=== PATIENT | female | born 1955 | race Caucasian/White ===

== ENCOUNTER 2019-05-20 11:48 | Observation (INO) ==
[2019-05-20] MEDS ORDERED: LACTATED RINGERS 1,000 ML IV ONE (12:01)
[2019-05-20 12:30] LABS: Basophils % 0.4 % (0.0-0.8); Eosinophils # 0.1 10*3/uL (0.0-0.87); Eosinophils % 1.6 % (0.00-10.9); Hematocrit 26.5 VOL% (35.7-47.0); Hemoglobin 9.4 GM/DL (12.0-16.0); Immature Granulocytes % 0.3 %; Immature Granulocytes Absolute 0.02 #; Lymphocytes # 1.6 10*3/uL (1.4-4.0); Lymphocytes % 21.6 % (21.3-54.2); Mean Corpuscular HGB Conc 35.5 GM/DL (32-36); Mean Corpuscular Volume 95.3 FL (87-102); Mean Platelet Volume 8.4 FL (9.6-12.0); Monocytes % 7.8 % (1.7-12.7); Neutrophils % 68.3 % (38.7-73.9); Platelet Count 221 T/CUMM (130-400); Red Blood Count 2.78 MC/CUMM (3.8-5.5); Red Cell Distribution Width 12.5 % (9.3-17.3); White Blood Count 7.5 T/CUMM (4-12)
[2019-05-20 12:45] LABS: Apearance,Urine Slightly Hazy (Clear); Bacteria,Urine Occasional /HPF (Few); Bilirubin,Urine Negative (Negative); Blood, Urine Small mg/dL (Negative); Glucose,Urine (UA) Negative (Negative); Hyaline Casts,Urine 6 /LPF (0-3); Ketones,Urine Negative (Negative); Nitrite,Urine Negative (Negative); Protein,Urine Negative; RBC,Urine 6 /HPF (0-4); Squamous Epithelial Cell,Urine Occasional /HPF (0-10); Urine Color Yellow (Yellow); Urine Specific Gravity 1.005 (1.001-1.035); Urine Urobilinogen < 2.0 EU/DL (0.2-1.0)
[2019-05-20 12:48] LABS: Albumin 3.6 G/DL (3.4-5.0); Bilirubin,Total 0.6 MG/DL (0.2-1.0); Calcium 12.5 MG/DL (8.5-10.1); Osmolality,Calculated 254.4 MOS/KG (273-304); Total Protein 7.2 G/DL (6.4-8.3)
[2019-05-20] MEDS ORDERED: BISACODYL 5 MG TABLET PO PRN (14:09)
[2019-05-20] MEDS ORDERED: DOCUSATE SODIUM 100 MG CAPSULE PO PRN (14:09)
[2019-05-20] MEDS ORDERED: NICOTINE 21 MG/24 HR PATCH TRANSDERM PRN (14:09)
[2019-05-20] MEDS ORDERED: ONDANSETRON 4 MG/2 ML VIAL IV PRN (14:09)
[2019-05-20] MEDS ORDERED: ACETAMINOPHEN 325 MG TABLET PO PRN (14:09)
[2019-05-20] MEDS ORDERED: SODIUM CHLORIDE 0.9% 1,000 ML IV SCH (14:30)
[2019-05-20] MEDS: SODIUM CHLORIDE 0.9% 1,000 ML IV SCH (17:05)
[2019-05-20] MEDS ORDERED: hydrALAZINE 20 MG/1 ML VIAL IV PRN (19:59)
[2019-05-20] MEDS: FERROUS SULFATE 325 MG TABLET PO SCH (20:33)
[2019-05-20] MEDS: ALPRAZolam 0.5 MG TABLET PO SCH (20:33)
[2019-05-21] MEDS: SODIUM CHLORIDE 0.9% 1,000 ML IV SCH (01:58)
[2019-05-21 04:22] LABS: Basophils % 0.3 % (0.0-0.8); Eosinophils # 0.1 10*3/uL (0.0-0.87); Eosinophils % 1.8 % (0.00-10.9); Hematocrit 24.8 VOL% (35.7-47.0); Hemoglobin 8.7 GM/DL (12.0-16.0); Immature Granulocytes % 0.6 %; Immature Granulocytes Absolute 0.04 #; Lymphocytes # 1.3 10*3/uL (1.4-4.0); Lymphocytes % 20.1 % (21.3-54.2); Mean Corpuscular HGB Conc 35.1 GM/DL (32-36); Mean Platelet Volume 8.7 FL (9.6-12.0); Monocytes % 8.5 % (1.7-12.7); Neutrophils % 68.7 % (38.7-73.9); Platelet Count 221 T/CUMM (130-400); Red Blood Count 2.61 MC/CUMM (3.8-5.5); Red Cell Distribution Width 12.5 % (9.3-17.3); White Blood Count 6.6 T/CUMM (4-12)
[2019-05-21 05:03] LABS: Albumin 3.1 G/DL (3.4-5.0); Bilirubin,Total 0.9 MG/DL (0.2-1.0); Calcium 10.3 MG/DL (8.5-10.1); Osmolality,Calculated 272.8 MOS/KG (273-304); Total Protein 6.2 G/DL (6.4-8.3)
[2019-05-21 05:12] LABS: Folate 10.2 NG/ML (5.4-24.0)
[2019-05-21] MEDS: POTASSIUM CHLORIDE RIDER 10 MEQ in PREMIX 1 EACH IV PRN ×5 (09:51→22:33)
[2019-05-21] MEDS: ALPRAZolam 0.5 MG TABLET PO SCH ×2 (09:52→20:20)
[2019-05-21] MEDS: amLODIPine 10 MG TABLET PO SCH (09:52)
[2019-05-21] MEDS: CITALOPRAM 20 MG TABLET PO SCH (09:52)
[2019-05-21] MEDS: PANTOPRAZOLE 40 MG TABLET PO SCH (09:52)
[2019-05-21] MEDS: FERROUS SULFATE 325 MG TABLET PO SCH ×2 (09:52→20:20)
[2019-05-21] MEDS ORDERED: SODIUM CHLORIDE 0.9% 1,000 ML IV SCH (11:00)
[2019-05-21] MEDS: MAGNESIUM SULF RIDER 4 GM in PREMIX 1 EACH IV PRN ×2 (11:57→15:30)
[2019-05-21] MEDS: traZODone 50 MG TABLET PO PRN (20:20)
[2019-05-22] MEDS: SODIUM CHLORIDE 0.9% 1,000 ML IV SCH (00:13)
[2019-05-22] MEDS: THIAMINE INJ 100 MG, FOLIC ACID INJ 1 MG, MULTIVITAMIN INJ 10 ML in SODIUM CHLORIDE 0.9... IV SCH ×2 (00:14→10:36)
[2019-05-22 04:36] LABS: Basophils % 0.5 % (0.0-0.8); Eosinophils # 0.1 10*3/uL (0.0-0.87); Eosinophils % 2.2 % (0.00-10.9); Hematocrit 21.1 VOL% (35.7-47.0); Hemoglobin 7.4 GM/DL (12.0-16.0); Immature Granulocytes % 0.5 %; Immature Granulocytes Absolute 0.03 #; Lymphocytes % 33.9 % (21.3-54.2); Mean Corpuscular HGB Conc 35.1 GM/DL (32-36); Mean Platelet Volume 8.7 FL (9.6-12.0); Monocytes % 8.6 % (1.7-12.7); Neutrophils % 54.3 % (38.7-73.9); Platelet Count 200 T/CUMM (130-400); Red Blood Count 2.22 MC/CUMM (3.8-5.5); Red Cell Distribution Width 12.7 % (9.3-17.3); White Blood Count 5.8 T/CUMM (4-12)
[2019-05-22 05:06] LABS: Calcium 8.4 MG/DL (8.5-10.1); Osmolality,Calculated 271.7 MOS/KG (273-304)
[2019-05-22] MEDS: CITALOPRAM 20 MG TABLET PO SCH (10:37)
[2019-05-22] MEDS: amLODIPine 10 MG TABLET PO SCH (10:38)
[2019-05-22] MEDS: POTASSIUM CHLORIDE 20 MEQ TABLET PO SCH (10:38)
[2019-05-22] MEDS: FERROUS SULFATE 325 MG TABLET PO SCH ×2 (10:39→20:34)
[2019-05-22] MEDS: PANTOPRAZOLE 40 MG TABLET PO SCH ×2 (11:13→20:34)
[2019-05-22] MEDS: ALPRAZolam 0.5 MG TABLET PO SCH ×2 (11:13→20:35)
[2019-05-22] MEDS: POTASSIUM CHLORIDE 20 MEQ TABLET PO PRN (12:44)
[2019-05-22] MEDS: traZODone 50 MG TABLET PO PRN (20:35)
[2019-05-23 04:36] LABS: Basophils % 0.4 % (0.0-0.8); Eosinophils # 0.2 10*3/uL (0.0-0.87); Eosinophils % 2.9 % (0.00-10.9); Hematocrit 22.2 VOL% (35.7-47.0); Hemoglobin 7.6 GM/DL (12.0-16.0); Immature Granulocytes % 0.4 %; Immature Granulocytes Absolute 0.03 #; Lymphocytes # 2.4 10*3/uL (1.4-4.0); Lymphocytes % 35.5 % (21.3-54.2); Mean Corpuscular HGB Conc 34.2 GM/DL (32-36); Mean Corpuscular Volume 101.4 FL (87-102); Mean Platelet Volume 8.7 FL (9.6-12.0); Monocytes % 7.4 % (1.7-12.7); Neutrophils % 53.4 % (38.7-73.9); Platelet Count 191 T/CUMM (130-400); Red Blood Count 2.19 MC/CUMM (3.8-5.5); White Blood Count 6.9 T/CUMM (4-12)
[2019-05-23 05:06] LABS: Calcium 7.8 MG/DL (8.5-10.1); Osmolality,Calculated 276.3 MOS/KG (273-304)
[2019-05-23] MEDS: POTASSIUM CHLORIDE 20 MEQ TABLET PO PRN ×2 (06:10→09:22)
[2019-05-23] MEDS: MAGNESIUM SULF RIDER 2 GM in PREMIX 1 EACH IV PRN ×2 (06:10→09:26)
[2019-05-23] MEDS: POTASSIUM CHLORIDE 20 MEQ TABLET PO SCH (09:21)
[2019-05-23] MEDS: CITALOPRAM 20 MG TABLET PO SCH (09:23)
[2019-05-23] MEDS: ALPRAZolam 0.5 MG TABLET PO SCH (09:23)
[2019-05-23] MEDS: amLODIPine 10 MG TABLET PO SCH (09:23)
[2019-05-23] MEDS: FERROUS SULFATE 325 MG TABLET PO SCH (09:23)
[2019-05-23] MEDS: PANTOPRAZOLE 40 MG TABLET PO SCH (09:23)
[2019-05-23] MEDS ORDERED: MAGNESIUM CHLORIDE 64 MG TABLET PO SCH (10:00)
[2019-05-23] MEDS: THIAMINE INJ 100 MG, FOLIC ACID INJ 1 MG, MULTIVITAMIN INJ 10 ML in SODIUM CHLORIDE 0.9... IV SCH (11:53)
[2019-05-23 12:38] VITALS: BP 120/75
[2019-05-23] MEDS ORDERED: INFLUENZA VIRUS VACCINE 0.5 ML SYRINGE IM ONE (15:04)
[2019-05-24 13:41] LABS: Osmolality, Serum 264 mOsm/kg (275 - 295); Osmolality, Urine 164 mOsm/kg (150 - 1150)
== END 2019-05-23 16:00 | disposition home or self-care (01) ==
LOC: EDUNIT# → N.4E 11:48 → N.ED 11:48 → SUATTDRO 14:09 → N.4E 15:00
PROVIDERS: ADMIT Family Medicine; ATTEND Hospitalist

== ENCOUNTER 2020-02-28 13:45 | Observation (INO) ==
[2020-02-28] MEDS ORDERED: ONDANSETRON 4 MG/2 ML VIAL ONE (14:35)
[2020-02-28] MEDS ORDERED: SODIUM CHLORIDE 0.9% 1,000 ML IV STA (14:39)
[2020-02-28] MEDS ORDERED: ONDANSETRON 4 MG/2 ML VIAL IV STA (14:39)
[2020-02-28 14:56] LABS: Basophils # 0.1 10*3/uL (0.0-0.2); Basophils % 0.6 % (0.0-0.8); Eosinophils # 0.3 10*3/uL (0.0-0.87); Eosinophils % 3.4 % (0.00-10.9); Hematocrit 25.4 VOL% (35.7-47.0); Hemoglobin 8.5 GM/DL (12.0-16.0); Immature Granulocytes % 0.8 %; Immature Granulocytes Absolute 0.07 #; Lymphocytes # 1.3 10*3/uL (1.4-4.0); Mean Corpuscular HGB Conc 33.5 GM/DL (32-36); Mean Corpuscular Volume 86.7 FL (87-102); Monocytes % 9.6 % (1.7-12.7); Neutrophils % 70.6 % (38.7-73.9); Platelet Count 379 T/CUMM (130-400); Red Blood Count 2.93 MC/CUMM (3.8-5.5); Red Cell Distribution Width 12.4 % (9.3-17.3); White Blood Count 8.7 T/CUMM (4-12)
[2020-02-28 15:04] LABS: Apearance,Urine Slightly Hazy (Clear); Bacteria,Urine Occasional /HPF (Few); Bilirubin,Urine Negative (Negative); Blood, Urine Negative (Negative); Glucose,Urine (UA) Negative (Negative); Hyaline Casts,Urine 13 /LPF (0-3); Ketones,Urine Negative (Negative); Mucus,Urine Occasional /LPF (Occasional); Nitrite,Urine Negative (Negative); Protein,Urine Negative; RBC,Urine 1 /HPF (0-4); Squamous Epithelial Cell,Urine Occasional /HPF (0-10); Urine Color Yellow (Yellow); Urine Specific Gravity 1.013 (1.001-1.035); Urine Urobilinogen < 2.0 EU/DL (0.2-1.0); WBC,Urine 33 /HPF (0-6)
[2020-02-28 15:08] LABS: Barbiturates Screen,Urine Negative (Negative); Benzodiazepines Screen,Urine Positive (Negative); Cannabinoid Screen,Urine Negative (Negative); Opiate Screen,Urine Positive (Negative); Phencyclidine Screen,Urine Negative (Negative)
[2020-02-28] MEDS ORDERED: cefTRIAXone 1,000 MG in SODIUM CHLORIDE 0.9% 100 ML IV STA (15:17)
[2020-02-28 15:22] LABS: Albumin 4.2 G/DL (3.4-5.0); Bilirubin,Total 0.4 MG/DL (0.2-1.0); Osmolality,Calculated 256.6 MOS/KG (273-304); Total Protein 8.3 G/DL (6.4-8.3)
[2020-02-28 15:40] LABS: Troponin I < 0.015 NG/ML (0.00-0.045)
[2020-02-28] MEDS ORDERED: MORPHINE 4 MG/1 ML VIAL IV STA (15:46)
[2020-02-28] MEDS ORDERED: MORPHINE 4 MG/1 ML VIAL IM STA (15:51)
[2020-02-28] MEDS: SODIUM CHLORIDE 0.9% 1,000 ML IV SCH (16:43)
[2020-02-28] MEDS ORDERED: NICOTINE 21 MG/24 HR PATCH TRANSDERM PRN (17:39)
[2020-02-28] MEDS ORDERED: diphenhydrAMINE CAP 25 MG CAPSULE PO PRN (17:39)
[2020-02-28] MEDS ORDERED: GLUCAGON 1 MG VIAL IM PRN (17:39)
[2020-02-28] MEDS ORDERED: DEXTROSE 50% 25 GM/50 ML VIAL IV PRN (17:39)
[2020-02-28] MEDS ORDERED: LACTULOSE 20 GM/30 ML UDCUP PO PRN (17:39)
[2020-02-28] MEDS ORDERED: guaiFENesin/DM ER 600-30 MG TABLET PO PRN (17:39)
[2020-02-28] MEDS ORDERED: BISACODYL 5 MG TABLET PO PRN (17:39)
[2020-02-28] MEDS ORDERED: DOCUSATE SODIUM 100 MG CAPSULE PO PRN (17:39)
[2020-02-28] MEDS ORDERED: ONDANSETRON 4 MG/2 ML VIAL IV PRN (17:39)
[2020-02-28] MEDS ORDERED: hydrALAZINE 20 MG/1 ML VIAL IV PRN (17:39)
[2020-02-28] MEDS ORDERED: SIMETHICONE CHEW 125 MG TABLET PO PRN (17:39)
[2020-02-28] MEDS ORDERED: ALUMINUM/MAGNES/SIMETH MAX STR 30 ML UDCUP PO PRN (17:39)
[2020-02-28] MEDS ORDERED: CALCIUM CARBONATE CHEW 500 MG TABLET PO PRN (17:39)
[2020-02-28] MEDS: HEPARIN 5,000 UNIT/1 ML VIAL SUBCUT SCH (18:54)
[2020-02-28] MEDS: ALBUTEROL/IPRATROPIUM 3 ML NEB RESP TX SCH (19:40)
[2020-02-28] MEDS: traZODone 50 MG TABLET PO SCH (23:45)
[2020-02-28] MEDS: FERROUS SULFATE 325 MG TABLET PO SCH (23:45)
[2020-02-28] MEDS: ALPRAZolam 0.5 MG TABLET PO PRN (23:45)
[2020-02-28] MEDS: ZALEPLON 5 MG CAPSULE PO PRN (23:45)
[2020-02-28] MEDS: MORPHINE 4 MG/1 ML VIAL IV PRN (23:45)
[2020-02-29] MEDS: ALBUTEROL/IPRATROPIUM 3 ML NEB RESP TX SCH ×4 (01:10→19:10)
[2020-02-29] MEDS: HEPARIN 5,000 UNIT/1 ML VIAL SUBCUT SCH ×3 (04:00→17:28)
[2020-02-29 05:03] LABS: Basophils % 0.6 % (0.0-0.8); Eosinophils # 0.3 10*3/uL (0.0-0.87); Eosinophils % 4.7 % (0.00-10.9); Hematocrit 22.8 VOL% (35.7-47.0); Hemoglobin 7.6 GM/DL (12.0-16.0); Immature Granulocytes % 0.6 %; Immature Granulocytes Absolute 0.04 #; Lymphocytes # 1.9 10*3/uL (1.4-4.0); Mean Corpuscular HGB Conc 33.3 GM/DL (32-36); Mean Corpuscular Volume 87.7 FL (87-102); Mean Platelet Volume 8.5 FL (9.6-12.0); Neutrophils % 56.1 % (38.7-73.9); Platelet Count 359 T/CUMM (130-400); Red Cell Distribution Width 12.5 % (9.3-17.3); White Blood Count 7.2 T/CUMM (4-12)
[2020-02-29 05:09] LABS: % Iron Saturation 35.7 % (18-50); Ferritin 251.4 ng/ml (8-252)
[2020-02-29 05:15] LABS: Albumin 3.5 G/DL (3.4-5.0); Bilirubin,Total 0.4 MG/DL (0.2-1.0); Calcium 9.4 MG/DL (8.5-10.1); Osmolality,Calculated 263.8 MOS/KG (273-304); Risk Ratio 6.64; Thyroid Stimulating Hormone 1.23 uIU/ml (0.358-3.74); Total Protein 7.2 G/DL (6.4-8.3)
[2020-02-29 05:28] LABS: Folate > 24.0 NG/ML (5.4-24.0); Vitamin B12 687 PG/ML (211-911)
[2020-02-29] MEDS: SODIUM CHLORIDE 0.9% 1,000 ML IV SCH ×3 (05:59→18:41)
[2020-02-29 06:37] LABS: Eosinophils 8 % (0-10); Lymphocytes 30 % (20-55); Segmented Neutrophils 54 % (50-85); Total Cells Counted 100
[2020-02-29 06:38] LABS: Hypochromasia 1+; Microcytosis Slight; Platelet Estimate Normal
[2020-02-29] MEDS ORDERED: SODIUM CHLORIDE 0.9% 1,000 ML IV PRN (06:42)
[2020-02-29] MEDS ORDERED: diphenhydrAMINE 50 MG/1 ML VIAL IV SCH (07:00)
[2020-02-29] MEDS ORDERED: FUROSEMIDE 20 MG/2 ML VIAL IV SCH (07:00)
[2020-02-29] MEDS: FERROUS SULFATE 325 MG TABLET PO SCH ×2 (08:58→20:26)
[2020-02-29] MEDS: PANTOPRAZOLE 40 MG TABLET PO SCH (08:58)
[2020-02-29] MEDS: COENZYME Q10 100 MG CAPSULE PO SCH (08:58)
[2020-02-29] MEDS: MORPHINE 4 MG/1 ML VIAL IV PRN ×2 (09:41→17:25)
[2020-02-29] MEDS ORDERED: LORazepam 2 MG/1 ML VIAL IV ONE ×2 (11:13)
[2020-02-29] MEDS: MULTIVITAMIN (BEROCCA) TABLET PO SCH (13:44)
[2020-02-29] MEDS: THIAMINE 200 MG/2 ML VIAL IV SCH (13:44)
[2020-02-29] MEDS ORDERED: ALPRAZolam 0.5 MG TABLET PO ONE (15:02)
[2020-02-29] MEDS ORDERED: MORPHINE 4 MG/1 ML VIAL IV ONE (15:05)
[2020-02-29] MEDS: traZODone 50 MG TABLET PO SCH (20:26)
[2020-02-29] MEDS ORDERED: ROSUVASTATIN 20 MG TABLET PO SCH (21:00)
[2020-02-29] MEDS ORDERED: FOLIC ACID 1 MG TABLET PO SCH (21:00)
[2020-02-29] MEDS: ALPRAZolam 0.5 MG TABLET PO PRN (21:27)
[2020-02-29] MEDS: ZALEPLON 5 MG CAPSULE PO PRN (21:27)
[2020-02-29] MEDS ORDERED: LEVOFLOXACIN INJ 500 MG in PREMIX 1 EACH IV SCH (21:30)
[2020-03-01] MEDS: HEPARIN 5,000 UNIT/1 ML VIAL SUBCUT SCH ×2 (01:10→09:23)
[2020-03-01] MEDS: SODIUM CHLORIDE 0.9% 1,000 ML IV SCH (01:17)
[2020-03-01] MEDS: ALBUTEROL/IPRATROPIUM 3 ML NEB RESP TX SCH ×2 (01:21→07:11)
[2020-03-01 03:06] LABS: Hemoglobin 10.4 GM/DL (12.0-16.0)
[2020-03-01 03:31] LABS: Albumin 3.3 G/DL (3.4-5.0); Bilirubin,Total 0.6 MG/DL (0.2-1.0); Calcium 9.1 MG/DL (8.5-10.1); Osmolality,Calculated 264.7 MOS/KG (273-304); Total Protein 6.9 G/DL (6.4-8.3)
[2020-03-01] MEDS ORDERED: amLODIPine 5 MG TABLET PO ONE (07:47)
[2020-03-01] MEDS ORDERED: amLODIPine 10 MG TABLET PO ONE (07:47)
[2020-03-01] MEDS: COENZYME Q10 100 MG CAPSULE PO SCH (08:02)
[2020-03-01] MEDS: FERROUS SULFATE 325 MG TABLET PO SCH (08:04)
[2020-03-01] MEDS: PANTOPRAZOLE 40 MG TABLET PO SCH (08:04)
[2020-03-01] MEDS: MULTIVITAMIN (BEROCCA) TABLET PO SCH (08:13)
[2020-03-01] MEDS: THIAMINE 200 MG/2 ML VIAL IV SCH (08:18)
[2020-03-01] MEDS ORDERED: LIDOCAINE 5% PATCH TRANSDERM SCH (09:00)
[2020-03-01] MEDS ORDERED: carvediloL 25 MG TABLET PO SCH (09:00)
[2020-03-01 11:28] VITALS: BP 154/98
[2020-03-01] MEDS: ALPRAZolam 0.5 MG TABLET PO PRN (12:19)
== END 2020-03-01 13:27 | disposition home or self-care (01) ==
LOC: N.ED 13:45 → N.EDINP 13:45 → N.TELES 02-29 05:02
PROVIDERS: ADMIT Hospitalist; ATTEND Hospitalist